=== PATIENT | male | born 1995 | race Caucasian/White ===

== ENCOUNTER 2020-08-20 12:20 | Emergency (ER) | payer MEDICAID ==
[~2020-08-20] VITALS: Ht 180.3 cm; Wt 74.9 kg
[2020-08-20 12:25] VITALS: BP 128/80
== END 2020-08-20 13:11 | disposition home or self-care (01) ==
LOC: ED 13:09
DX: L01.01 Non-bullous impetigo (principal); F17.200 Nicotine dependence, unspecified, uncomplicated
CPT/HCPCS: 99283

== ENCOUNTER 2020-09-29 17:33 | Emergency (ER) | payer MEDICAID ==
[~2020-09-29] VITALS: Ht 180.3 cm; Wt 69.8 kg
[2020-09-29 18:05] VITALS: BP 105/67
--- NOTE | 2020-09-29 21:17 | NUR ---
PT NOT IN LOBBY
--- NOTE | 2020-09-29 21:33 | NUR ---
[id number]
--- NOTE | 2020-09-29 21:34 | NUR ---
[id number]
== END 2020-09-29 21:36 | disposition left against medical advice (07) ==
LOC: ED 18:00
DX: M54.6 Pain in thoracic spine (principal); R20.2 Paresthesia of skin
CPT/HCPCS: 72072; 99283

== ENCOUNTER 2020-10-02 22:39 | Emergency (ER) | payer MEDICAID ==
[~2020-10-02] VITALS: Ht 180.3 cm; Wt 73.4 kg
[2020-10-02 22:50] VITALS: BP 109/58
[2020-10-03] MEDS ORDERED: IBUPROFEN 600 MG TABLET ONE (01:24)
[2020-10-03] MEDS ORDERED: CLINDAMYCIN 300 MG CAPSULE ONE (01:24)
[2020-10-03] MEDS ORDERED: HYDROcodone/APAP 5/325 TABLET ONE (01:24)
[2020-10-03] MEDS ORDERED: IBUPROFEN 600 MG TABLET PO ONE (01:30)
[2020-10-03] MEDS ORDERED: CLINDAMYCIN 300 MG CAPSULE PO ONE (01:30)
[2020-10-03] MEDS ORDERED: HYDROcodone/APAP 5/325 TABLET PO ONE (01:30)
== END 2020-10-03 02:54 | disposition home or self-care (01) ==
LOC: ED 23:00
DX: J34.0 Abscess, furuncle and carbuncle of nose (principal); L03.113 Cellulitis of right upper limb; F17.210 Nicotine dependence, cigarettes, uncomplicated
CPT/HCPCS: 99406